=== PATIENT | male | born 1995 | race American Indian/Alaskan Native ===

== ENCOUNTER 2021-02-08 10:42 | Emergency (ER) | payer SELFPAY ==
[2021-02-08] MEDS ORDERED: IBUPROFEN 600 MG TAB PO ONE (11:02)
[2021-02-08 11:03] VITALS: BP 144/85
--- NOTE | 2021-02-08 11:03 | Emergency Department Report ---
ED General Adult HPI - General Chief complaint: Medical Clearance Stated complaint: RIB PAIN Time Seen by Provider: 02/08/21 10:56 Source: patient Mode of arrival: Ambulatory Limitations: No Limitations - History of Present Illness Initial comments: 25-year-old male presents to the ER today complaining of bilateral lower anterior rib pain. Patient states that his symptoms started Monday while she was at work. He denies any particular injury. 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 He states that the pain is worse when he stretches, when he leans forward and when he touches the area. He denies any apparent swelling, bruising or rash. He denies any shortness of breath, fever, chills, cough, abdominal pain, nausea or vomiting. He has not been taking anything for the pain. He denies similar symptoms in the past. MD Complaint: Rib pain -: Gradual, days(s) (3) - Related Data Previous Rx's Medication Instructions Recorded Last Taken Type Ketorolac [Toradol] 10 mg PO Q6H PRN #20 tablet 02/08/21 Unknown Rx Allergies Allergy/AdvReac Type Severity Reaction Status Date / Time No Known Allergies Allergy Verified 02/08/21 11:31 ED Review of Systems ROS: Stated complaint: RIB PAIN Other details as noted in HPI Comment: All other systems reviewed and negative Constitutional: denies: chills, fever Eyes: denies: eye pain, eye discharge, vision change ENT: denies: ear pain, throat pain Respiratory: denies: cough, shortness of breath, SOB with exertion, SOB at rest, wheezing Cardiovascular: other (rib pain ). denies: chest pain, palpitations, dyspnea on exertion Gastrointestinal: denies: abdominal pain, nausea, vomiting, diarrhea, constipation, hematemesis, hematochezia Genitourinary: denies: urgency, dysuria, frequency, hematuria, discharge, testicular pain, testicular mass Musculoskeletal: denies: back pain, joint swelling, arthralgia Skin: denies: rash, lesions, change in color, change in hair/nails, pruritus Neurological: denies: headache, weakness, numbness, paresthesias, confusion, abnormal gait, vertigo Psychiatric: denies: anxiety, depression, auditory hallucinations, visual hallucinations, homicidal thoughts, suicidal thoughts Hematological/Lymphatic: denies: easy bleeding, easy bruising ED Past Medical Hx - Past Medical History Previous Medical History?: No Additional medical history: denies - Surgical History Past Surgical History?: No Additional Surgical History: hand surgery - Medications Home Medications: Home Medications Medication Instructions Recorded Confirmed Last Taken Type Ketorolac [Toradol] 10 mg PO Q6H PRN #20 tablet 02/08/21 Unknown Rx ED Physical Exam - General Limitations: No Limitations General appearance: alert, in no apparent distress - Head Head exam: Present: atraumatic, normocephalic, normal inspection - Eye Eye exam: Present: normal appearance, PERRL, EOMI Pupils: Present: normal accommodation - Neck Neck exam: Present: normal inspection, full ROM - Respiratory Respiratory exam: Present: normal lung sounds bilaterally, chest wall tenderness (moderate along the coastal cartilage bilaterally ). Absent: respiratory distress, wheezes, rales, rhonchi, stridor - Cardiovascular Cardiovascular Exam: Present: regular rate, normal rhythm, normal heart sounds - GI/Abdominal GI/Abdominal exam: Present: soft. Absent: distended, tenderness, guarding, rebound - Neurological Exam Neurological exam: Present: alert, oriented X3, CN II-XII intact, normal gait - Psychiatric Psychiatric exam: Present: normal affect, normal mood - Skin Skin exam: Present: intact ED Course Vital Signs 02/08/21 10:49 Temperature 98.5 F Pulse Rate 84 Respiratory 18 Rate Blood Pressure 144/85 O2 Sat by Pulse 99 Oximetry ED Medical Decision Making - Radiology Data Radiology results: report reviewed Patient: JACKELYN ANDRADE MR#: [id number] 196 : 1995 Acct:[id number] Age/Sex: 25 / M ADM Date: 02/08/21 Loc: ED Attending Dr: Ordering Physician: SISSY KENNEDY Date of Service: 02/08/21 Procedure(s): XR chest routine 2V Accession Number(s): [id number] cc: SISSY KENNEDY Fluoro Time In Minutes: CHEST 2 VIEWS INDICATION / CLINICAL INFORMATION: rib pain. COMPARISON: None available. FINDINGS: SUPPORT DEVICES: None. HEART / MEDIASTINUM: No significant abnormality. LUNGS / PLEURA: No significant pulmonary or pleural abnormality. No pneum othorax. ADDITIONAL FINDINGS: No significant additional findings. IMPRESSION: 1. No acute findings. Signer Name: Richardson Lo MD Signed: 02/08/2021 12:06 PM Workstation Name: [id number] Transcribed By: DB Dictated By: RICHARDSON LO MD Electronically Authenticated By: RICHARDSON LO MD Signed Date/Time: 02/08/211205 DD/ 04 TD/TT: - Medical Decision Making 25-year-old male presents to the ER today complaining of bilateral lower anterior rib pain. Patient states that his symptoms started Monday while she was at work. He denies any particular injury. 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 He states that the pain is worse when he stretches, when he leans forward and when he touches the area. He denies any apparent swelling, bruising or rash. He denies any shortness of breath, fever, chills, cough, abdominal pain, nausea or vomiting. He has not been taking anything for the pain. He denies similar symptoms in the past. 1219: Chest x-ray shows nothing acute. Patient currently resting comfortably, he is on his phone, is not in any acute pain or respiratory distress, he is not toxic and is neurologically intact with a normal gait. Patient has reproducible tenderness along his costal cartilage. Suspect that his pain is likely related to costochondritis at this time. At this time I do not suspect unstable angina, IN, PE, emergent intra-abdominal or any other emergent cardio pulmonary conditions warranting any additional testing, admission or specialist consult at this time. Discussed x-ray results as well as suspected diagnosis and treatment plan with patient. Patient expressed understanding and agree with plan. Patient stable at time of discharge. Critical care attestation.: If time is entered above; I have spent that time in minutes in the direct care of this critically ill patient, excluding procedure time. ED Disposition Clinical Impression: Costochondritis Disposition: 01 HOME / SELF CARE / HOMELESS Is pt being admited?: No Does the pt Need Aspirin: No Condition: Stable Instructions: Costochondritis, [id number] Additional Instructions: I recommend that you take the toradol as prescribed. Follow up with your PCP this week or next week. Return to ED if your symptoms worsens or changes in anyway. Prescriptions: Ketorolac [Toradol] 10 mg PO Q6H PRN #20 tablet PRN Reason: Pain Referrals: [facility] [Provider Group] - 3-5 Days Forms: Work/School Release Form(ED) Time of Disposition: 12:14
--- NOTE | 2021-02-08 12:11 | XRay Report ---
CHEST 2 VIEWS INDICATION / CLINICAL INFORMATION: rib pain. COMPARISON: None available. FINDINGS: SUPPORT DEVICES: None. HEART / MEDIASTINUM: No significant abnormality. LUNGS / PLEURA: No significant pulmonary or pleural abnormality. No pneumothorax. ADDITIONAL FINDINGS: No significant additional findings. IMPRESSION: 1. No acute findings. Signer Name: Richardson Lo MD Signed: 02/08/2021 12:06 PM Workstation Name: [id number]
== END 2021-02-08 12:32 | disposition home or self-care (01) ==
LOC: ED 10:42
DX: M94.0 Chondrocostal junction syndrome [Tietze] (principal); Z98.890 Other specified postprocedural states
CPT/HCPCS: 71046; 99283